=== PATIENT | male | born 1975 | race Caucasian/White ===

== ENCOUNTER → 2021-03-27 20:04 | Outpatient (CLI) | payer BC, SELFPAY | PROVIDERS: Visit Provider Nurse Practitioner Family | DX: U07.1 COVID-19 (principal); J02.9 Acute pharyngitis, unspecified | CPT/HCPCS: C9803; U0003; U0005 ==

== ENCOUNTER 2022-03-06 17:49 | Emergency (ER) | payer OTHER, SELFPAY ==
[2022-03-06 18:15] VITALS: BP 146/89; PULSE 106; RESP 16; TEMP 38.3; O2SAT 99; BMI 35.2
[2022-03-06 18:26] LABS: UTC Influenza A Antigen Positive (Negative); UTC Influenza B Antigen Negative (Negative)
--- NOTE | 2022-03-06 18:32 | EXP.UTC ---
Discharge Plan Disposition Patient Disposition: Home, Self-Care Condition: Good Prescriptions Prescriptions: No Action No Known Home Medications Referrals Follow up/Referrals: Phuong Alberto MD [Primary Care Provider] - See instructions Activity Restrictions/Add. Instructions Additional Instructions/Restrictions: Start Tamiflu today if you are going to take it. Discussed risk and possible benefits. Lots of rest Increase Fluids water, Gatorade, powerade, pedialyte,if /toddler/child Alternate Tylenol and / or ibuprofen as discussed for fever, aches, chills Follow up IMMEDIATELY with your family doctor for new or worsening Symptoms OR no noticeable improvement over the next 48-72 hours, 911 for difficulty or breathing You or your child area contagious until no fever, aches, chills for 24 hours with medication for symptoms Help Prevent the spread of influenza: ?Wash your hands often. Use soap and water. Wash your hands after you use the bathroom, change a child's diapers, or sneeze. Wash your hands before you prepare or eat food. Use gel hand cleanser that has 60% alcohol, when soap and water are not available. Do not touch your eyes, nose, or mouth unless you have washed your hands first. Cover your mouth when you sneeze or cough. Cough into a tissue or the bend of your arm. If you use a tissue, throw it away immediately and wash your hands. Clean shared items with a germ-killing bottle cleaner. Clean table surfaces, doorknobs, and light switches. Do not share towels, silverware, and dishes with people who are sick. Wash bed sheets, towels, silverware, and dishes with soap and water. Wear a mask over your mouth and nose if you are sick. The face mask may help protect others from becoming infected with the flu. Wear the mask when in common areas of your home or if you seek care with a healthcare provider. Stay away from others if you are sick. Stay at home until 24 hours after your fever and symptoms are gone. Clinical Impressions Clinical Impression: Influenza A Stand Alone Forms Stand Alone Forms: Work/School Release Instructions Patient Instructions: Influenza, DI for Influenza -- Adult Discharge ED Provider: Verna Galindo [facility] General Stated complaint: fever/chills, sore throat, h/a, body aches Mode of Arrival: Ambulatory Source of Information: Patient Limitations: No Limitations Time Seen by Provider: 03/06/22 18:32 Description of Symptoms (Recalled from Triage Doc. by RN): PATIENT C/O BODY ACHES, CHILLS, HEADACHE, LEFT EAR PAIN, AND SORE THROAT HEENT Symptoms (Recalled from RN notes): Yes Resp Symptoms (Recalled from RN notes): No Skin Symptoms (Recalled from RN notes): No MS Symptoms (Recalled from RN notes): No Functional Status (Recalled from RN notes): WNL History of Present Illness Provider Complaint: Patient states that he hasnt felt well for about 3 days States that today he has started aching all over, pain and pressure in his ears worse in the left and sore throat, chills and fever States that he thinks he may have the flu Related Data Home Medications Medication Instructions Recorded Confirmed No Known Home Medications 03/27/21 03/06/22 Allergies Allergy/AdvReac Type Severity Reaction Status Date / Time No Known Allergies Allergy Verified 03/27/21 12:15 Worker's Comp Is this a Worker's Comp case?: No [facility] Disclaimer: The information contained in this section may have been updated after the patient was seen, as this information can be updated by other users. Medical History (Updated 03/06/22 @ 18:40 by Verna Galindo APRN) Hypertension Surgical History (Updated 03/06/22 @ 18:24 by Rosalina Wiley RN) History of appendectomy History of tonsillectomy History of tympanostomy tube placement
[2022-03-06 18:46] VITALS: BP 146/89; PULSE 106; RESP 16; TEMP 38.3; O2SAT 99
== END 2022-03-06 19:00 | disposition home or self-care (01) ==
PROVIDERS: Emergency Provider Nurse Practitioner; PCP Family Medicine
DX: J10.1 Influenza due to other identified influenza virus with other respiratory manifestations (principal)
CPT/HCPCS: 87804; 99212; G0463

== ENCOUNTER 2024-05-16 09:33 | Outpatient (CLI) | payer OTHER, SELFPAY ==
[2024-05-16 10:45] LABS: Basophils % 0.3 % (0.1-2.0); Eosinophils # 0.2 K/mm3 (0.0-0.4); Eosinophils % 2.1 % (0.1-12.0); Hematocrit 44.5 % (42.0-52.0); Hemoglobin 15.1 g/dL (14.1-18.0); Lymphocytes % 22.1 % (10-50); Mean Corpuscular HGB Conc 33.9 g/dL (31.8-35.4); Mean Corpuscular Hemoglobin 29.8 pg (27.0-31.2); Mean Corpuscular Volume 87.9 fl (80-94); Mean Platelet Volume 9.8 fl (7.4-10.4); Monocytes # 0.7 K/mm3 (0.1-1.0); Monocytes % 7.8 % (1.7-9.3); Neutrophils # 6.1 K/mm3 (1.8-7.8); Neutrophils % 66.4 % (37.0-80.0); Platelet Count 310 K/mm3 (142-424); Red Blood Count 5.06 M/mm3 (4.60-6.20); Red Cell Distribution Width 14.1 % (11.5-17.5); White Blood Count 9.1 K/mm3 (4.8-10.8)
[2024-05-16 11:26] LABS: Alanine Aminotransferase 40 U/L (12-78); Albumin/Globulin Ratio 1.5 (1.1-1.8); Alkaline Phosphatase 64 U/L (38-126); Anion Gap 11.1 mEq/L (5-15); Aspartate Amino Transferase 37 U/L (17-59); Bilirubin,Total 0.5 mg/dl (0.2-1.3); Blood Urea Nitrogen 9 mg/dl (9-20); Calcium 8.6 mg/dl (8.4-10.2); Carbon Dioxide 27 mmol/L (22.0-30.0); Chloride 105 mmol/L (98-107); Chol/HDL Ratio 8.8 (1-3.5); Cholesterol 158 mg/dl (140-200); Estimated Glomerular Filt Rate 89 ml/min (>60); GFR (African American) 108 ML/MIN (>60); Globulin 2.6 g/dL (1.3-3.2); Glucose 90 mg/dl (74-100); HDL Cholesterol 18 mg/dl (40-60); Potassium 4.1 mmoL/L (3.5-5.1); Sodium 139 mmol/L (136-145); Total Protein,Serum 6.6 g/dl (6.3-8.2); Triglycerides 182 mg/dl (30-150); VLDL Cholesterol 36 mg/dL (0-40)
[2024-05-16 11:38] LABS: Direct LDL Cholesterol 97.23 mg/dL (100-129)
[2024-05-16 11:42] LABS: 25-OH Vitamin D, Total 31.6 ng/mL (30-100)
[2024-05-16 11:55] LABS: Thyroid Stimulating Hormone 2.48 uIU/mL (0.465-4.68)
[2024-05-16 12:14] LABS: Vitamin B12 561 pg/mL (239-931)
== END 2024-05-16 23:59 | disposition home or self-care (01) ==
LOC: LAB 09:36
PROVIDERS: PCP Nurse Practitioner Family; Visit Provider Nurse Practitioner Family
DX: R53.83 Other fatigue (principal)
CPT/HCPCS: 36415; 80053; 80061; 82306; 82607; 84443; 85025

== ENCOUNTER 2024-06-02 07:25 | Outpatient (CLI) | payer OTHER, SELFPAY ==
--- NOTE | 2024-06-02 | CA_ITS ---
APPROVED REPORT Exam: Pharmacologic Technologist: Shari Richards Ht: 6 ft 4 in Wt: 290 lbs BSA: 2.59 m2 Stress Test Details Test: Lexiscan Reason for pharmacologic stress test: physical limitation. HR Resting HR: 65 bpm Max Heart Rate (APMHR): 170.200159 bpm Max HR Achieved: 91 bpm Target HR (85% APMHR): 144.761172 bpm % of APMHR: 53.53 Recovery HR: 72 bpm BP Resting BP: 128.0/76.0 mmHg Max BP: 132.0/72.0 mmHg Recovery BP: 113.0/74.0 mmHg ECG Resting ECG: Sinus Stress ECG Conclusion Symptoms: --- Arrhythmias/Ectopy: --- ST-T Changes: Less than 1mm ST depression. Conclusion: EKG unremarkable due to Lexiscan infusion. Electronically signed by : Kailyn Elaine MD 06/02/2024 12:13:29
--- NOTE | 2024-06-02 07:27 | NM_ITS ---
APPROVED REPORT Exam: Nuclear Stress Test Indication: Chest pain, SOB, Family history Patient Location: Outpatient Stress Tech: Shari Marcial [place] Tech:Chelsea Whitfield, ARRT, RT (R)(N) Ht: 6 ft 0 in Wt: 290 lbs HR: 65 bpm BP: 128/76 mmHg BSA: 2.49 m2 TID: 1.15 History: Chest pain, SOB, Family history Procedure: Patient received 0.4 mg of intravenous Lexiscan, resting heart rate 65 bpm, resting blood pressure 128/76 mmHg, with Lexiscan maximum heart rate achieved was 98 bpm which is % of the maximum predicted heart rate and blood pressure was 132/72 mmHg. With Lexiscan, patient denied any complaint of chest pain. Cardiac Stress and Resting SPECT Images: Cardiac Stress and Resting SPECT images were obtained using technetium 99m Myoview 30.2 mCi stress and 10.85 mCi at rest. Resting and stress imaging in supine and prone positions demonstrate a medium sized, moderate, partially reversible perfusion defect in the distal anterior and apical LV corrigan. Gated imaging demonstrates mild reduction global LV systolic function. LVEF is calculated at 49%. Conclusion: Medium sized, moderate, partially reversible perfusion defect in the distal anterior and apical LV corrigan. Findings are suggestive of partial reversible ischemia. Gated imaging demonstrates mild reduction global LV systolic function. LVEF is calculated at 49%. Electronically signed by : Kailyn Elaine MD 06/02/2024 12:13:06
[2024-06-02] MEDS: ISOTOPE MYOVIEW (PER STUDY) 1 DOSE IV (09:07)
[2024-06-02] MEDS: REGADENOSON 0.4MG/5ML SYRINGE 0.4 MG IV (09:07)
[2024-06-02] MEDS: SODIUM CHLORIDE 0.9% 10ML SYR (RAD ONLY) 10 ML IV ×2 (09:07)
== END 2024-06-02 23:59 | disposition home or self-care (01) ==
LOC: RAD 07:25
PROVIDERS: PCP Nurse Practitioner Family; Visit Provider Nurse Practitioner Family
DX: R07.89 Other chest pain (principal); R06.09 Other forms of dyspnea
CPT/HCPCS: 78452; 93017; 93018; A9502; J2785

== ENCOUNTER 2024-06-19 07:33 | Outpatient (CLI) | payer OTHER, SELFPAY ==
--- NOTE | 2024-06-19 | CA_ITS ---
APPROVED REPORT EXAM: Comprehensive 2D, Doppler, and color-flow Echocardiogram Flosser: Magdalene Hicks RDCS Ht: 6 ft 0 in Wt: 290lbs BSA: 2.49 BP: 146/89 mmHg Indications: ABN GXT,CAD,HTN,SEXTON M-Mode Dimensions RVDd 2.40 cm (0.9-2.6) LA Diam 4.12 cm (1.9-4.0) LVDd 5.60 cm (3.5-5.7) LVDs 4.08 cm (3.5-5.7) IVSd 0.80 cm (0.6-1.1) PWd 1.03 cm (0.6-1.1) EF (Teich) 52.20% FS 27.10% EDV (Teich) 153.70 mL ESV (Teich) 73.40 mL LV Diastology E Decel Time 283 (160-240 msec) E/A Ratio 0.8 Aortic Valve JENNIFER Index 2.08 cm2/m2 AoV Peak Harley. 129.0 (50-130 cm/s) AO Peak GR. 6.60 mmHg AO Mean GR. 3.30 (<5 mmHg) AO VTI 22.2 (18-25 cm) JENNIFER (VTI) 5.32 (2.5-4.5 cm2) Mitral Valve MV E Max Harley. 57.0 (40-130 cm/s) MV A Velocity 73.0 (40-130 cm/s) E/A Ratio 0.77 MV PHT 83.0 ms Left Ventricle The left ventricle is normal size. The left ventricular systolic function is normal. The left ventricular ejection fraction is within the normal range. Proximal septal thickening is present. There is normal LV segmental wall motion. The left ventricular diastolic function is normal. LVEF is 55%. Right Ventricle The right ventricle is normal size. The right ventricular systolic function is normal. Atria Left atrium is mildly dilated. Right atrium is mildly dilated. There is no Doppler evidence of interatrial shunt. Aortic Valve The aortic valve opens well. There is no aortic valvular stenosis. No aortic regurgitation is present. Mitral Valve The mitral valve is normal in structure. No evidence of mitral valve stenosis. Trace mitral regurgitation. Tricuspid Valve Tricuspid valve is grossly normal in structure and function. Trace tricuspid regurgitation. There is insufficient TR jet to estimate RVSP. Pulmonic Valve The pulmonary valve is normal in structure. Trace pulmonic regurgitation. Great Vessels The aortic root is normal in size. IVC is normal in size and collapses >50% with inspiration. Pericardium There is no pericardial effusion. Other Information Study Quality: Fair Conclusion Normal biventricular systolic function. Mild biatrial dilation. No significant valvular stenosis or regurgitation. Electronically signed by : Kailyn Elaine MD 06/25/2024 13:12:31
== END 2024-06-19 23:59 | disposition home or self-care (01) ==
LOC: RT 07:34
PROVIDERS: PCP Nurse Practitioner Family; Visit Provider Nurse Practitioner Family
DX: R07.89 Other chest pain (principal); R94.39 Abnormal result of other cardiovascular function study
CPT/HCPCS: 93306